=== PATIENT | female | born 1965 | race Caucasian/White ===

== ENCOUNTER 2022-03-26 15:17 | Emergency (ER) | payer SELFPAY ==
[~2022-03-26] VITALS: Ht 167 cm; Wt 81.0 kg
[2022-03-26] MEDS ORDERED: ONDANSETRON 4 MG (ZOFRAN) ORAL DISSOLVE TAB PO STA (15:55)
[2022-03-26] MEDS ORDERED: HYDROcodone/APAP 5 MG/325 MG (LORTAB) TAB PO ONE (16:00)
--- NOTE | 2022-03-26 16:01 | ED Lower Extremity ---
General Chief Complaint: Orthopedic Problems Stated Complaint: STEPPED ON BY HORSE Nursing Triage Note: pt. reports left foot and ankle was stomped on by own horse when attempting to give medication to him. pt. denies any other injury. noteable edema and bruising. pt. reports NPO of food and drink since 0 today. Source: patient, family Exam Limitations: no limitations (VILLA PADILLA) History of Present Illness Date Seen by Provider: Mar 26, 2022 Time Seen by Provider: 15:59 Initial Comments This is a 56-year-old female that presents to the emergency room for evaluation of left foot and ankle injury. She states that she was trying to give her horse medicine and it became belligerent and stomped on her foot and ankle. She currently rates her pain as a sharp 9 out of 10 but states that there are also some dull components to it. She states that ambulation is impossible at this time. She did not attempt any therapy prior to arrival. This injury occurred approximately 2 hours ago. Onset: just prior to arrival Pain/Injury Location: left foot, left ankle Method of Injury: other (crush injury) (VILLA PADILLA) Allergies and Home Medications Allergies Coded Allergies: No Known Drug Allergies (Unverified , 03/26/22) Patient Home Medication List Home Medication List Reviewed: Yes (VILLA PADILLA) Hydrocodone/Acetaminophen (Hydrocodone-Acetamin 5-325 mg) 5 Mg-325 Mg Tablet, 1 TAB PO Q4H PRN for PAIN-MODERATE (5-7) Prescribed by: ROWENA CHAN on 03/26/22 6906 Review of Systems Constitutional: no symptoms reported EENTM: no symptoms reported Respiratory: no symptoms reported Cardiovascular: no symptoms reported Gastrointestinal: no symptoms reported Genitourinary: no symptoms reported : No Musculoskeletal: see HPI Skin: no symptoms reported Psychiatric/Neurological: No Symptoms Reported (VILLA PADILLA) Past Pyjxgzk-Gywsid-Wiygpa Hx Immunizations Up To Date Influenza Vaccine Up-to-Date: Yes; Up-to-Date (VILLA PADILLA) Physical Exam Vital Signs Vital Signs - First Documented 03/26/22 15:30 Temp 36.4 Pulse 70 Resp 18 Pulse Ox 95 O2 Delivery Room Air (LAITH PERKINS) Vital Signs Capillary Refill : Less Than 3 Seconds (VILLA PADILLA) Height, Weight, BMI Height: '" Weight: lbs. oz. kg; 29.00 BMI Method: General Appearance: WD/WN, no apparent distress HEENT: PERRL/EOMI Neck: non-tender Cardiovascular: regular rate, rhythm Respiratory: no respiratory distress Gastrointestinal: non tender Hips: bilateral hip non-tender, bilateral hip normal inspection Legs: bilateral leg non-tender, bilateral leg normal inspection Knees: bilateral knee non-tender, bilateral knee normal inspection Ankles: left ankle bone tenderness, left ankle ecchymosis Feet: left foot bone tenderness, left foot ecchymosis Neurologic/Psychiatric: general ophthalmologist II-XII nml as tested Skin: warm/dry Lymphatic: no adenopathy (VILLA PADILLA) Procedures/Interventions Splinting and Joint Reduction : Location: left ankle Pre-Proc Neuro Vasc Exam: normal Post-Proc Neuro Vasc Exam: normal Progress Left short leg posterior Ortho-Glass splint applied by nurse and supervised by me. Neurovascular intact post application. Patient given crutches. Hand-Made Type: orthoglass Splint Application: Short Leg (VILLA PADILLA) Progress/Results/Core Measures Results/Orders Vital Signs/I&O 03/26/22 15:30 Temp 36.4 Pulse 70 Resp 18 B/P (MAP) Pulse Ox 95 O2 Delivery Room Air (LAITH PERKINS) Departure Communication (PCP) Patient has a displaced distal tibia (medial malleolus) fracture. She was placed in a short leg posterior stirrup splint and given crutches. She will be referred to the orthopedist. No other injuries identified at this time. No evidence or suspicion of compartment syndrome and the patient's tetanus shot is up-to-date. (VILLA PADILLA) X-ray did note suspect midfoot fractures noted near the base of the metatarsals. Lucency in the navicular possible nutrient foramen with a fracture not excluded. Possible nondisplaced fracture of the fourth metatarsal head. Patient was placed in a short leg posterior stirrup splint and was given crutches. She does not have severe tenderness to these locations. Discussed CT imaging to rule out potential foot fractures. Patient states she will rather follow-up outpatient. She will need further imaging and orthopedic consult (LAITH PERKINS) Impression Primary Impression: Fracture of distal end of tibia Additional Impression: Foot fracture Disposition: 01 HOME, SELF-CARE Condition: Stable Departure-Patient Inst. Decision time for Depature: 16:23 (VILLA PADILLA) Referrals: NAREN CEVALLOS MD Patient Instructions: How to Use Crutches, Ankle Fracture ED Add. Discharge Instructions: Please follow-up with the orthopedist as we discussed. Return to the emergency room with any severe changes or worsening of your symptoms. All discharge instructions reviewed with patient and/or family. Voiced understanding. Scripts Hydrocodone/Acetaminophen (Hydrocodone-Acetamin 5-325 mg) 5 Mg-325 Mg Tablet 1 TAB PO Q4H PRN for PAIN-MODERATE (5-7), #12 TAB Prov: LAITH PERKINS 03/26/22 ATTENDING PHYSICIAN NOTE: I was physically present as attending physician in the emergency department during the care of this patient, but I was not directly involved in the decision making or delivery of care for this patient. (TOMER GOLDBERG MD) VILLA PADILLA Mar 26, 2022 16:01 LAITH PERKINS Mar 26, 2022 16:26 TOMER GOLDBERG MD Mar 27, 2022 21:30
--- NOTE | 2022-03-26 16:23 | Diagnostic Imaging Report ---
INDICATION: Trauma, pain. COMPARISON: Imaging of the foot from the same date. TECHNIQUE: Three radiographs of the left ankle dated 03/26/2022. FINDINGS: Acute mildly distracted fracture involving the medial malleolus is present. Approximately 9 mm of distraction is noted. No additional acute fracture. No dislocation. The talar dome is unremarkable. Soft tissue swelling about the ankle. Ankle joint effusion is noted. Small plantar calcaneal enthesophyte. IMPRESSION: Acute distracted medial malleolar fracture with associated overlying soft tissue swelling and ankle joint effusion present. Dictated by: Dictated on workstation # [id number]
[2022-03-26] MEDS ORDERED: ACHD5005 PO (16:26)
--- NOTE | 2022-03-26 16:29 | Diagnostic Imaging Report ---
INDICATION: Trauma, pain. Stumped by a horse. Bruising. EXAMINATION: Left foot, 03/26/2022. FINDINGS: Three views of the foot. There is a vague lucency at the base of one of the metatarsals, best seen on the lateral view, suspicious for a fracture along the plantar surface. On the frontal and oblique views, superimposition at the base of the second through fourth metatarsals with adjacent tarsals limits evaluation. If there is point tenderness to the midfoot, CT would be recommended to better exclude other fractures. A vague lucency is noted within the mid aspect of the navicular, which could be a nutrient foramen with a fracture line not excluded. There is a lucency involving the fourth metatarsal head suspicious for a fracture. There are chronic degenerative changes at the first metatarsophalangeal joint and remaining interphalangeal joint spaces. A fracture of the medial malleolus is also noted; please see separate ankle report. There is diffuse soft tissue swelling about the ankle and foot. IMPRESSION: 1. Suspected midfoot fractures near the base of the metatarsals, best seen on the lateral view, with superimposition of structures on the subsequent views limiting evaluation. CT may be warranted. 2. Lucency in the navicular, possibly a nutrient foramen with a fracture not excluded. 3. Medial malleolar fracture. 4. Suspected nondisplaced fracture of the fourth metatarsal head. Dictated by: Dictated on workstation # [id number]
== END 2022-03-26 16:46 | disposition home or self-care (01) ==
LOC: ER 15:24
DX: S82.52XA Displaced fracture of medial malleolus of left tibia, initial encounter for closed fracture (principal); S90.32XA Contusion of left foot, initial encounter; W55.12XA Struck by horse, initial encounter
CPT/HCPCS: 29515; 73610; 73630; 99281

== ENCOUNTER 2022-03-31 10:59 | Outpatient (CLI) | payer SELFPAY ==
[~2022-03-31] VITALS: Ht 167.7 cm; Wt 81.8 kg
[~2022-03-31 10:59] MED LIST changes: -ACET-2650 PO; -BACL10TA PO; -BUDE10.2 IH; -CHOL100048 PO; -LEVO5TAB12 PO; -LOSA50TA63 PO; -MELO7.5T46 PO; -TRZ50T PO
[2022-03-31] MEDS ORDERED: TRZ50T PO (11:16)
[2022-03-31] MEDS ORDERED: LEVO5TAB12 PO (11:16)
[2022-03-31] MEDS ORDERED: LOSA50TA63 PO (11:16)
[2022-03-31] MEDS ORDERED: MELO7.5T46 PO (11:16)
[2022-03-31] MEDS ORDERED: ACET-2650 PO (11:16)
[2022-03-31] MEDS ORDERED: CHOL100048 PO (11:16)
[2022-03-31] MEDS ORDERED: BACL10TA PO (11:16)
[2022-03-31] MEDS ORDERED: BUDE10.2 IH (11:16)
== END 2022-03-31 11:39 | disposition home or self-care (01) ==
LOC: PREOP 10:59
PROVIDERS: ATTEND Orthopaedic Surgery
DX: Z01.818 Encounter for other preprocedural examination (principal)

== ENCOUNTER → 2022-03-31 | Outpatient (CLI) | payer OTHER ==
[~2022-03-31] MED LIST: ACET-2650 PO; ACHD5005 PO; BACL10TA PO; BUDE10.2 IH; CHOL100048 PO; LEVO5TAB12 PO; LOSA50TA63 PO; MELO7.5T46 PO; TRZ50T PO
[2022-03-31 10:32] LABS: HEMATOCRIT 40 % (35-52); MEAN CORPUSCULAR HEMOGLOBIN 31 pg (25-34); MEAN CORPUSCULAR HGB CONC 35 g/dL (32-36); MEAN CORPUSCULAR VOLUME 90 fL (80-99); MEAN PLATELET VOLUME 9.2 fL (9.0-12.2); PLATELET COUNT 257 10^3/uL (130-400); WHITE BLOOD COUNT 7.2 10^3/uL (4.3-11.0)
[2022-03-31 10:51] LABS: CALCIUM 9.3 MG/DL (8.5-10.1); CREATININE SERUM 0.78 MG/DL (0.60-1.30)
--- NOTE | 2022-03-31 11:48 | Diagnostic Imaging Report ---
PROCEDURE: CT left lower extremity without contrast. TECHNIQUE: Multiple contiguous axial images were obtained through the left lower extremity without the use of intravenous contrast. Sagittal and coronal reformations were then performed. Auto Exposure Controls were utilized during the CT exam to meet ALARA standards for radiation dose reduction. INDICATION: Trauma to the left foot and ankle, pain and swelling. COMPARISON: Radiographs from 03/26/2022 FINDINGS: There is a mildly displaced transverse fracture across the medial malleolus extending into the joint space. The lateral malleolus and the posterior malleolus are intact. There is mild widening at the medial clear space from the medial malleolus fracture, otherwise the ankle mortise appears symmetric. There are moderate to marked degenerative changes in the posterior subtalar joint. There is calcaneal enthesopathy. No acute fracture seen in the hindfoot. There is moderate soft tissue swelling about the ankle. No focal muscular atrophy is seen. The posterior tibial tendon lies adjacent to the medial malleolus fracture but there is no evidence of entrapment. IMPRESSION: 1. Mildly displaced fracture of the medial malleolus in the left ankle. 2. The posterior tibial tendon lies adjacent to the fracture but there is no evidence of entrapment. 3. For foot findings, please refer to separate report. Dictated by: Dictated on workstation # [id number]
--- NOTE | 2022-03-31 11:50 | Diagnostic Imaging Report ---
PROCEDURE: CT left lower extremity without contrast. TECHNIQUE: Multiple contiguous axial images were obtained through the left lower extremity without the use of intravenous contrast. Sagittal and coronal reformations were then performed. Auto Exposure Controls were utilized during the CT exam to meet ALARA standards for radiation dose reduction. INDICATION: Trauma to the left foot. COMPARISON: Radiograph from 03/26/2022 FINDINGS: There is a small avulsion fracture at the base of the 1st metatarsal at the plantar aspect. There may be a small avulsion fracture at the dorsal aspect as well. There are degenerative changes in the 1st tarsometatarsal joint. There is a minimally displaced comminuted intra-articular fracture at the base of the 2nd metatarsal. Although suboptimally evaluated with CT, the Lisfranc ligament itself appears to remain intact. No additional fractures are seen in the midfoot or forefoot. There are mild degenerative changes in the toes and in the midfoot. No focal muscular atrophy is seen. No soft tissue masses or fluid collections are seen on this noncontrast CT. There is moderate subcutaneous edema. There is a small subcutaneous hematoma dorsal to the 4th metatarsal head measuring 1.4 cm in diameter. IMPRESSION: 1. Comminuted intra-articular fracture at the base of the 2nd metatarsal. This is in the region of the Lisfranc ligament attachment, although the ligament itself appears intact by CT. 2. Small avulsion fractures at the 1st metatarsal base. 3. Moderate dorsal subcutaneous edema, with a small hematoma dorsal to the 4th metatarsal head. Dictated by: Dictated on workstation # [id number]
--- NOTE | 2022-03-31 12:51 | Diagnostic Imaging Report ---
Indication: Preop for left ankle fracture. Time of Exam: 11:54 AM No prior studies are available for comparison. The heart size normal. There is some linear scarring or atelectasis in the left base. Otherwise, the lungs are clear. No infiltrates are seen. There is no effusion or pneumothorax. IMPRESSION: No acute cardiopulmonary process is detected. Dictated by: Dictated on workstation # [id number]
== END ==
LOC: RAD 11:00
PROVIDERS: ATTEND Orthopaedic Surgery
DX: S82.52XA Displaced fracture of medial malleolus of left tibia, initial encounter for closed fracture (principal); S92.325A Nondisplaced fracture of second metatarsal bone, left foot, initial encounter for closed fracture; S92.312A Displaced fracture of first metatarsal bone, left foot, initial encounter for closed fracture; T14.8XXA Other injury of unspecified body region, initial encounter; X58.XXXA Exposure to other specified factors, initial encounter
CPT/HCPCS: 36415; 71045; 73700; 80048; 85027; 93005

== ENCOUNTER → 2022-03-31 | Outpatient (CLI) | payer OTHER | LOC: ORTHO 08:53 | PROVIDERS: ATTEND Orthopaedic Surgery | DX: S82.52XA Displaced fracture of medial malleolus of left tibia, initial encounter for closed fracture (principal); S92.322A Displaced fracture of second metatarsal bone, left foot, initial encounter for closed fracture; X58.XXXA Exposure to other specified factors, initial encounter | CPT/HCPCS: 29405; G0463 ==

== ENCOUNTER 2022-04-01 07:13 | Day surgery (SDC) | payer OTHER ==
[2022-04-01] VITALS (11 sets, daily range): BP systolic 120–145; BP diastolic 62–89
[~2022-04-01] VITALS: Ht 167.7 cm; Wt 81.8 kg
[~2022-04-01 07:13] MED LIST changes: +ACET-2650 PO; +BACL10TA PO; +BUDE10.2 IH; +CHOL100048 PO; +LEVO5TAB12 PO; +LOSA50TA63 PO; +MELO7.5T46 PO; +TRZ50T PO
[2022-04-01] MEDS ORDERED: BUPIVACAINE 0.25% 10 ML (SENSORCAINE) VIAL ONE (07:43)
[2022-04-01] MEDS ORDERED: NEO/POLY/BAC (NEOSPORIN) OINT 15 GM TUBE ONE (07:43)
[2022-04-01] MEDS ORDERED: LIDOCAINE/EPI 2% 1:200,00 (XYLOCAINE) 20 ML VIAL ONE (07:43)
[2022-04-01] MEDS ORDERED: LIDOCAINE PF 2% 5 ML (XYLOCAINE) VIAL ONE (07:50)
[2022-04-01] MEDS ORDERED: proPOfol 200 MG/20 ML (DIPRIVAN) VIAL IV ONE (07:50)
[2022-04-01] MEDS ORDERED: fentaNYL INJ 100 MCG/2 ML AMP ONE (07:50)
[2022-04-01] MEDS ORDERED: ONDANSETRON 4 MG/2 ML (SDV) Z0FRAN ONE (07:50)
[2022-04-01] MEDS ORDERED: MIDAZOLAM 2 MG/2 ML (VERSED) VIAL ONE (07:51)
[2022-04-01] MEDS: LACTATED RINGERS 1,000 ML IV PRN ×2 (08:00→09:33)
[2022-04-01] MEDS ORDERED: ceFAZolin 2 GM IV Premixed 50 ML IV ONE (08:00)
--- NOTE | 2022-04-01 08:19 | Progress Note-Pre Operative ---
Pre-Operative Progress Note H&P Reviewed The H&P was reviewed, patient examined and no changes noted. Date Seen by Provider: Apr 01, 2022 Time Seen by Provider: 08:15 Date H&P Reviewed: Apr 01, 2022 Time H&P Reviewed: 08:17 Pre-Operative Diagnosis: Displaced medial malleolar fracture left ankle NAREN CEVALLOS MD Apr 01, 2022 08:19
[2022-04-01] MEDS ORDERED: SEVOFLURANE (ULTANE) 15 ML INHAL SOLN ONE ×2 (09:51→09:52)
[2022-04-01] MEDS ORDERED: HYDROcodone/APAP 5 MG/325 MG (LORTAB) TAB PO PRN (10:00)
--- NOTE | 2022-04-01 10:06 | Operative Report - Ortho ---
Operative Report Surgeon (s)/Television Actor (s) Surgeon NAREN CEVALLOS MD Television Actor n/a Pre-Operative Diagnosis Displaced medial malleolar fracture left ankle Post-Operative Diagnosis same Operative Report Date of Procedure: Apr 01, 2022 Name of Procedure Performed: Open reduction internal fixation displaced medial malleolar fracture left ankle with 2 36 mm 4.0 cannulated screws Description & Findings The patient was seen in preop and the left leg was marked. The patient had no questions or concerns. She was taken to the operating room and placed on the OR table. She was given 2 g Ancef IV preoperatively. After administration of general anesthesia a tourniquet was placed on the left thigh. The cast was removed from the left lower leg. The left foot ankle and leg were then prepped and draped in the usual sterile manner. The tourniquet was elevated to 250 mmHg after elevation of the leg for several minutes. A skin incision was made obliquely over the medial malleolus. This was taken down through subcutaneous tissue. The saphenous vein was identified and retracted. The fracture hematoma was noted and irrigated. The fracture was freshened with an elevator and then reduced without difficulty and held with a reduction clamp. 2 guidewires were placed through the medial malleolus across fracture site to the distal tibia. These were overdrilled. Image was used to visualize position of the guidewires which was central medial malleolus. 236 mm 4.0 cannulated screws were then inserted over the guidewires. Images used to visualize the position of the screws and excellent alignment was noted the fracture as well as the screws. Good purchase was noted. The mortise was symmetrical and showed no widening medially. No widening was noted at the syndesmosis. No fracture of the distal fibula. This point the Fibula is evaluated from the knee to the ankle with fluoroscopy and no fractures were noted. The distal fibula was then grasped with a reduction clamp and stressed and no instability of the syndesmosis was noted. At this point the guidewires were removed. The wound was irrigated with normal saline after the tourniquet was deflated after 23 minutes. There is minimal bleeding. After irrigation the periosteum was closed over the fracture site. Subcutaneous tissue was closed with 2-0 Vicryl and skin with skin clips. The wound was injected with 20 mL of a 50-50 mixture of 2% lidocaine with epinephrine and 0.25% Marcaine plain. Wound was dressed with antibiotic ointment, Adaptic and 4 x 4's. The leg foot and ankle were then wrapped with Ellamore and a posterior and sugar-tong splint was applied. These were wrapped with an Jacky wrap. Ankle is at 90 degrees in neutral position. Patient had good capillary refill of the toes which were pink and warm. Patient was then transferred to recovery room in good condition, she tolerated the procedure well. Tourniquet time23 minutes at 250 mmHg Estimated blood loss less than 25 mL Replacementnone Drainsnone Complicationsnone Discharge instructionselevation and ice left ankle. Walker crutch ambulation nonweightbearing on the left. Hydrocodone 5/325 1-2 every 4 hours as needed pain. The patient does have a prescription for this provided in the office yest shaheen. Patient has a follow-up appointment on 04/07. Call if there is any problems or questions. n/a Anesthesia Type General Estimated Blood Loss Less than 25 mL Packing none. Specimen(s) collected/removed None NAREN CEVALLOS MD Apr 01, 2022 10:06
[2022-04-01] MEDS ORDERED: HYDROmorphone 2 MG/ML VIAL (DILAUDID) ONE (10:07)
[2022-04-01] MEDS ORDERED: HYDROmorphone 2 MG/ML VIAL (DILAUDID) IV ONE (10:15)
[2022-04-01] MEDS ORDERED: morphine INJ 10 MG/ML 1ML (SYR OR VIAL) IVP ONE (10:15)
[2022-04-01] MEDS ORDERED: ONDANSETRON 4 MG/2 ML (SDV) Z0FRAN IVP PRN (10:15)
--- NOTE | 2022-04-01 10:58 | Anesthesia-General Post-Op ---
General Patient Condition Mental Status/LOC: Same as Preop Cardiovascular: Satisfactory Nausea/Vomiting: Absent Respiratory: Satisfactory Pain: Controlled Complications: Absent Post Op Complications Complications None Follow Up Care/Instructions Patient Instructions None needed. Anesthesia/Patient Condition Patient Condition Patient is doing well, no complaints, stable vital signs, no apparent adverse anesthesia problems. No complications reported per nursing. BEN ABDALLA DO Apr 01, 2022 10:58
--- NOTE | 2022-04-01 13:00 | Diagnostic Imaging Report ---
INDICATION: Fluoroscopy was provided in the OR during left ankle surgery. Images demonstrate 2 partially threaded screws transfixing the medial malleolus. Ankle alignment is normal. 31 seconds of fluoroscopic time was utilized. 3 images were obtained. IMPRESSION: Fluoroscopy for left ankle ORIF. Dictated by: Dictated on workstation # [id number]
== END 2022-04-01 12:05 | disposition home or self-care (01) ==
LOC: SDC 07:13
PROVIDERS: ATTEND Orthopaedic Surgery
DX: S82.52XA Displaced fracture of medial malleolus of left tibia, initial encounter for closed fracture (principal); S92.325A Nondisplaced fracture of second metatarsal bone, left foot, initial encounter for closed fracture; S92.345A Nondisplaced fracture of fourth metatarsal bone, left foot, initial encounter for closed fracture; W55.12XA Struck by horse, initial encounter; M19.90 Unspecified osteoarthritis, unspecified site; Z79.899 Other long term (current) drug therapy
CPT/HCPCS: 76000; 87081

== ENCOUNTER → 2022-04-07 | Outpatient (CLI) | payer OTHER | LOC: ORTHO 09:00 | PROVIDERS: ATTEND Orthopaedic Surgery | DX: S89.142A Salter-Harris Type IV physeal fracture of lower end of left tibia, initial encounter for closed fracture (principal); S92.322A Displaced fracture of second metatarsal bone, left foot, initial encounter for closed fracture; X58.XXXA Exposure to other specified factors, initial encounter | CPT/HCPCS: 29405 ==

== ENCOUNTER → 2022-04-16 | Outpatient (CLI) | payer OTHER ==
--- NOTE | 2022-04-16 10:47 | Diagnostic Imaging Report ---
INDICATION: Follow-up fracture. COMPARISON: 03/26/2022 FINDINGS: Multiple radiographic views of the left ankle were obtained and show postsurgical changes of interval ORIF. Two partially threaded screws are seen traversing the medial malleolus. Surgical skin triston are also present. As a result, there is now near-anatomic alignment of the fracture fragments. No unexpected radiopaque foreign bodies are seen. No new acute osseous abnormalities identified. Tibiotalar joint space appears appropriate. IMPRESSION: 1. Expected postsurgical changes of interval ORIF of the left ankle. Dictated by: Dictated on workstation # [id number]
--- NOTE | 2022-04-16 10:49 | Diagnostic Imaging Report ---
INDICATION: Follow-up fracture. COMPARISON: 03/26/2022 FINDINGS: Multiple radiographic views of the left foot were obtained and show postsurgical changes of interval ORIF of the medial malleolus of the distal tibia. 2 partially threaded screws are noted, as are surgical skin triston. No new acute osseous abnormality of the left foot is seen. Joint spaces are maintained. No unexpected radiopaque foreign bodies are seen. IMPRESSION: 1. Expected interval postsurgical changes to the distal tibia. 2. No new acute osseous abnormality of the left foot. Dictated by: Dictated on workstation # [id number]
== END ==
LOC: ORTHO 09:47
PROVIDERS: ATTEND Orthopaedic Surgery
DX: S82.52XA Displaced fracture of medial malleolus of left tibia, initial encounter for closed fracture (principal); S92.325A Nondisplaced fracture of second metatarsal bone, left foot, initial encounter for closed fracture; X58.XXXA Exposure to other specified factors, initial encounter
CPT/HCPCS: 73610; 73630

== ENCOUNTER → 2022-04-30 | Outpatient (CLI) | payer OTHER ==
--- NOTE | 2022-04-30 10:41 | Diagnostic Imaging Report ---
INDICATION: Postop left ankle. TIME OF EXAM: 9:48 AM. FINDINGS: Three views of the left ankle demonstrate normal alignment. The ankle mortise is well maintained. The talar dome is smooth. There are two partially threaded screws transfixing the medial malleolus. No fracture or dislocation is seen. There is a large plantar calcaneal spur. IMPRESSION: Satisfactory postop appearance to the left ankle. Dictated by: Dictated on workstation # [id number]
== END ==
LOC: ORTHO 09:38
PROVIDERS: ATTEND Orthopaedic Surgery
DX: S82.52XD Displaced fracture of medial malleolus of left tibia, subsequent encounter for closed fracture with routine healing (principal); S92.322D Displaced fracture of second metatarsal bone, left foot, subsequent encounter for fracture with routine healing; Z98.890 Other specified postprocedural states; X58.XXXD Exposure to other specified factors, subsequent encounter
CPT/HCPCS: 73610

== ENCOUNTER → 2022-05-14 | Outpatient (CLI) | payer OTHER ==
--- NOTE | 2022-05-14 10:32 | Diagnostic Imaging Report ---
INDICATION: Left ankle surgery, followup. TIME OF EXAM: 9:32 AM. COMPARISON: Correlation is made with the prior radiograph from 04/30/2022. FINDINGS: Three views of the left ankle demonstrate two partially threaded screws transfixing the medial malleolus. The fracture line does remain partially visible but alignment is anatomic. The ankle mortise is well maintained. The talar dome is smooth. A large plantar calcaneal spur is noted. IMPRESSION: Postop changes to the left ankle. The fracture of the medial malleolus does remain partially visible. Dictated by: Dictated on workstation # [id number]
== END ==
LOC: ORTHO 09:11
PROVIDERS: ATTEND Orthopaedic Surgery
DX: S82.52XD Displaced fracture of medial malleolus of left tibia, subsequent encounter for closed fracture with routine healing (principal); X58.XXXD Exposure to other specified factors, subsequent encounter
CPT/HCPCS: 73610

== ENCOUNTER → 2022-05-28 | Outpatient (CLI) | payer OTHER ==
--- NOTE | 2022-05-28 10:24 | Diagnostic Imaging Report ---
INDICATION: Follow-up ankle fracture. COMPARISON: 05/14/2022 FINDINGS: 3 radiographic views of the left ankle were obtained. 2 partially threaded screws are again seen within the medial malleolus. Previously described fracture line is inconspicuous. No unexpected radiopaque foreign bodies are seen. No new acute osseous abnormalities identified. Joint spaces are maintained. IMPRESSION: 1. Redemonstration postoperative changes to the left ankle as above. Dictated by: Dictated on workstation # [id number]
== END ==
LOC: ORTHO 09:20
PROVIDERS: ATTEND Orthopaedic Surgery
DX: S82.52XA Displaced fracture of medial malleolus of left tibia, initial encounter for closed fracture (principal); X58.XXXA Exposure to other specified factors, initial encounter
CPT/HCPCS: 73610

== ENCOUNTER → 2022-06-11 | Outpatient (RCR) | payer OTHER | END | disposition home or self-care (01) | PROVIDERS: ATTEND Orthopaedic Surgery | DX: S82.52XD Displaced fracture of medial malleolus of left tibia, subsequent encounter for closed fracture with routine healing (principal); X58.XXXD Exposure to other specified factors, subsequent encounter ==

== ENCOUNTER → 2022-06-18 | Outpatient (CLI) | payer OTHER ==
--- NOTE | 2022-06-18 09:09 | Diagnostic Imaging Report ---
Indication: Follow-up left ankle fracture. Time of Exam: 8:47 AM Correlation is made with prior left ventricle radiograph from 05/28/2022. Ankle alignment is normal. The ankle mortise is well-maintained. The talar dome is smooth. There are 2 partially threaded screws transfixing the medial malleolus. The orthopedic hardware is intact. No fracture or loosening of the hardware is identified. There is a minimal residual lucency involving the medial malleolus consistent with a residual fracture line. Alignment is anatomic. There is some mild generalized overlying soft tissue swelling of the medial ankle. Midfoot is unremarkable. There is a large plantar calcaneal spur. IMPRESSION: Postoperative changes of ORIF involving the medial malleolar fracture. Fracture line does remain partly visible however overall alignment is anatomic. Dictated by: Dictated on workstation # [id number]
== END ==
LOC: ORTHO 08:26
PROVIDERS: ATTEND Orthopaedic Surgery
DX: S82.52XA Displaced fracture of medial malleolus of left tibia, initial encounter for closed fracture (principal); X58.XXXA Exposure to other specified factors, initial encounter
CPT/HCPCS: 73610

== ENCOUNTER 2022-06-19 10:41 | Outpatient (RCR) | payer OTHER | END 2022-06-19 15:45 | disposition home or self-care (01) | PROVIDERS: ATTEND Orthopaedic Surgery | DX: S82.52XD Displaced fracture of medial malleolus of left tibia, subsequent encounter for closed fracture with routine healing (principal); X58.XXXD Exposure to other specified factors, subsequent encounter ==

== ENCOUNTER → 2023-03-24 | Outpatient (CLI) | payer OTHER ==
--- NOTE | 2023-03-24 10:50 | Diagnostic Imaging Report ---
EXAMINATION: Magnetic resonance imaging of the right knee without intravenous contrast DATE: March 24, 2023. COMPARISON: None. INDICATION: 57-year-old female, right knee pain. History of injury one year ago. TECHNIQUE: Multiplanar, multisequence non contrast enhanced MR imaging was accomplished. FINDINGS: MENISCI: There is an oblique tear involving the anterior horn, body, and posterior horn of the medial meniscus. There is 4 mm medial meniscal extrusion. The lateral meniscus is intact. LIGAMENTS AND TENDONS: The anterior and posterior cruciate ligaments are intact. The medial collateral ligament is intact. The iliotibial band, mid third lateral capsular ligament, fibular collateral ligament, biceps femoris tendon and conjoined tendon are intact. The quadriceps tendon and patella ligament are intact. JOINT: There are broad areas of full-thickness cartilage loss involving the weightbearing portions of the medial femoral condyle and medial tibial plateau. The lateral and patellofemoral compartment cartilage is grossly intact. There is no knee joint effusion. BONE: There is mild degenerative related marrow edema adjacent to the medial compartment. There is no acute fracture, bone contusion, or evidence of osteonecrosis. BURSAE AND SOFT TISSUES: There is a small Osborn's cyst. IMPRESSION: 1. Oblique tear involving the anterior horn, body, and posterior horn of the medial meniscus with 4 mm medial meniscal extrusion. 2. Intact lateral meniscus. 3. Intact anterior and posterior cruciate ligaments. Additional ligaments and tendons are intact. 4. There is severe medial compartment osteoarthritis without knee joint effusion. 5. No acute fracture, bone contusion, or evidence of osteonecrosis. 6. Small Osborn's cyst. Dictated by: Dictated on workstation # [id number]
== END ==
LOC: RAD 08:11
PROVIDERS: ATTEND Nurse Practitioner
DX: S83.241D Other tear of medial meniscus, current injury, right knee, subsequent encounter (principal); M17.11 Unilateral primary osteoarthritis, right knee; M71.21 Synovial cyst of popliteal space [Baker], right knee; X58.XXXD Exposure to other specified factors, subsequent encounter
CPT/HCPCS: 73721

== ENCOUNTER → 2023-04-22 | Outpatient (CLI) | payer OTHER ==
[~2023-04-22] MED LIST changes: +LIRA0.6P SQ; +MELA1TAB PO
== END ==
LOC: ORTHO 10:28
PROVIDERS: ATTEND Orthopaedic Surgery
DX: S83.241D Other tear of medial meniscus, current injury, right knee, subsequent encounter (principal); M17.11 Unilateral primary osteoarthritis, right knee; X58.XXXD Exposure to other specified factors, subsequent encounter
CPT/HCPCS: 99203

== ENCOUNTER 2023-04-24 05:32 | Outpatient (CLI) | payer OTHER ==
[~2023-04-24] VITALS: Ht 168.9 cm; Wt 80.5 kg
[~2023-04-24 05:32] MED LIST changes: -LIRA0.6P SQ; -MELA1TAB PO
[2023-04-24] MEDS ORDERED: MELA1TAB PO (11:32)
[2023-04-24] MEDS ORDERED: LIRA0.6P SQ (11:34)
== END 2023-04-24 11:49 ==
LOC: PREOP 05:32
PROVIDERS: ATTEND Orthopaedic Surgery
DX: Z01.818 Encounter for other preprocedural examination (principal)

== ENCOUNTER → 2023-05-19 | Outpatient (CLI) | payer OTHER ==
[~2023-05-19] MED LIST changes: +LIRA0.6P SQ; +MELA1TAB PO; +OXC5T PO
== END ==
LOC: ORTHO 13:22
PROVIDERS: ATTEND Orthopaedic Surgery
DX: Z47.89 Encounter for other orthopedic aftercare (principal)

== ENCOUNTER → 2023-07-23 | Outpatient (CLI) | payer OTHER | LOC: ORTHO 11:30 | PROVIDERS: ATTEND Orthopaedic Surgery | DX: Z47.89 Encounter for other orthopedic aftercare (principal); M17.11 Unilateral primary osteoarthritis, right knee | CPT/HCPCS: 20610 ==

== ENCOUNTER → 2023-08-25 | Outpatient (CLI) | payer OTHER | LOC: ORTHO 10:42 | PROVIDERS: ATTEND Orthopaedic Surgery | DX: M17.11 Unilateral primary osteoarthritis, right knee (principal) | CPT/HCPCS: 99213 ==